=== PATIENT | female | born 1980 | race Caucasian/White ===

== ENCOUNTER 2019-02-01 16:11 | Emergency (ER) | payer SELFPAY ==
[~2019-02-01] VITALS: Ht 172.7 cm; Wt 120.5 kg
[2019-02-01] MEDS ORDERED: ACETAMINOPHEN 325 MG TABLET PO ONE (16:45)
[2019-02-01 18:49] VITALS: BP 132/64
== END 2019-02-01 19:58 | disposition home or self-care (01) ==
LOC: EMS 16:14
DX: M25.562 Pain in left knee (principal); M25.572 Pain in left ankle and joints of left foot; F17.210 Nicotine dependence, cigarettes, uncomplicated; W01.0XXA Fall on same level from slipping, tripping and stumbling without subsequent striking against object, initial encounter; Y93.89 Activity, other specified; Y92.89 Other specified places as the place of occurrence of the external cause; Y99.8 Other external cause status